=== PATIENT | female | born 1950 | race Caucasian/White ===

== ENCOUNTER 2016-09-10 04:08 | Day surgery (SDC) | payer MEDICARE, OTHER ==
[2016-09-09 11:37] LABS: HEMATOCRIT 39.9 % (36.0-48.0); HEMOGLOBIN 13.4 g/dL (12.0-16.0)
[2016-09-09 11:47] LABS: BUN (BLOOD UREA NITROGEN) 21 MG/DL (6-23); CALCIUM, SERUM 9.4 MG/DL (8.5-10.4); CHLORIDE, SERUM 104 MMOL/L (96-112); CO2 (CARBON DIOXIDE) 27 MMOL/L (24-34); CREATININE 0.93 MG/DL (0.55-1.02); GFR AFRICAN AMERICAN 73 ML/MIN (>=60); GFR NON AFRICAN AMERICAN 63 ML/MIN (>=60); GLUCOSE, SERUM 118 MG/DL (60-99); POTASSIUM, SERUM 4.2 MMOL/L (3.5-5.3); SODIUM, SERUM 141 MMOL/L (135-148)
--- NOTE | ~2016-09-10 | OP ---
Record Of Operation [facility] [address] [place]. [address] NAME: CLINT SANCHEZ : 46 STATUS : REG [facility] PAT#: [id number] AGE: 66 ADM/REG DATE : 09/10/16 MR#: [id number] REPORT SERV DATE: 09/10/16 DICTATED BY: AMILCAR VALLES DATE: 09/10/16 REPORT STATUS : Draft TRANSCRIBED BY: MODL DATE: 09/10/16 DATE OF PROCEDURE: 09/10/2016 PREOPERATIVE DIAGNOSIS: 1. Ventral hernia. 2. Sebaceous cyst left facial cheek. POSTOPERATIVE DIAGNOSIS: 1. Ventral hernia. 2. Sebaceous cyst left facial cheek. OPERATION PERFORMED: 1. Open ventral hernia repair with Bard Ventralight mesh. 2. Removal of sebaceous cyst, left facial cheek. SURGEON: Amilcar Valles M.D. ANESTHESIA: General. ESTIMATED BLOOD LOSS: Less than 20 mL. IV FLUIDS: Adequate. INDICATION FOR PROCEDURE: Ms. Sanchez is a 66-year-old white female, who has had multiple previous abdominal surgeries. She has developed a ventral hernia. She is here for repair today. In addition, she has a lesion over her left facial cheek that she would like to have excised. DESCRIPTION OF OPERATION: After appropriate sedation, the patient was prepped and draped in proper sterile fashion. Incision was made directly over the hernia. The hernia sac was entered. Attachments to the hernia sac were taken down. There was a moderate amount of transverse colon within the hernia sac. We dissected all the attachments to the transverse colon from the abdominal wall and we were finally able to reduce it. We had approximately 3 cm defect noted. We then cleared off the abdominal wall. We then sutured a piece of Bard Ventralight mesh circumferentially to the abdominal wall using #1 Nurolon suture. We then closed the fascial defect using #1 Nurolon suture. Marcaine was injected around the fascia. The back of the umbilical skin was tacked to the fascia. The skin was closed using interrupted 3-0 Vicryl suture. We then turned our attention toward the left cheek. A small incision was made directly over at the lesion. We then were able to enucleate an approximately 2 cm sebaceous cyst. The skin was closed using interrupted 3-0 Vicryl suture. Steri-Strips and dressings were then placed. The patient was taken to the recovery room in satisfactory condition. Record Of Operation [facility] [address] [place]. [address] NAME: CLINT SANCHEZ : 46 STATUS : REG [facility]#: [id number] AGE: 66 ADM/REG DATE : 09/10/16 MR#: [id number] REPORT SERV DATE: 09/10/16 DICTATED BY: AMILCAR VALLES DATE: 09/10/16 REPORT STATUS : Draft TRANSCRIBED BY: JAVON DATE: 09/10/16 ZOE/JAVON ilcar Valles M.D. / [id number] CC: Syl Rascon M.D.
[~2016-09-10 04:08] MED LIST: ACET500CAP PO; CITRUCEL500 MG PO; CLARIT10 PO; COZ50 PO; GLUCCHONDR PO; IBU800 PO; L40 PO; LUMIGAN2.5 ML OPH; MICRO-K10 MEQ PO; MULTIPLE VIT PO; NASACORTAQ NAS; OCUVITE PO; OMEGA; SPIRIVA INH; TEARS PURE OPH; VITAMIN D31000 UNIT PO; VITC500 PO
[2016-12-23] MEDS ORDERED: CENTRUM PO (09:01)
[2016-12-23] MEDS ORDERED: OCUVITE PO (09:01)
[2016-12-23] MEDS ORDERED: MICRO-K10 MEQ PO (09:02)
[2016-12-23] MEDS ORDERED: FLAXSEED OIL1000 MG PO (09:02)
[2016-12-23] MEDS ORDERED: SPIRIVA INH (09:03)
[2016-12-23] MEDS ORDERED: ACET500CAP PO (09:04)
== END 2016-09-10 16:29 | disposition home or self-care (01) ==
LOC: SDC 04:08
PROVIDERS: Specialist
PROC: 0WUF0JZ Supplement Abdominal Wall with Synthetic Substitute, Open Approach (ICD-10-PCS; principal; 2016-09-10 05:45)
PROC: 0HB1XZZ Excision of Face Skin, External Approach (ICD-10-PCS; 2016-09-10 05:45)
DX: K43.9 Ventral hernia without obstruction or gangrene (principal); L72.0 Epidermal cyst; I10 Essential (primary) hypertension; J44.9 Chronic obstructive pulmonary disease, unspecified; K21.9 Gastro-esophageal reflux disease without esophagitis; E66.01 Morbid (severe) obesity due to excess calories; M19.90 Unspecified osteoarthritis, unspecified site; Z88.5 Allergy status to narcotic agent; Z68.41 Body mass index [BMI] 40.0-44.9, adult; Z87.891 Personal history of nicotine dependence; Z88.8 Allergy status to other drugs, medicaments and biological substances; Z98.890 Other specified postprocedural states
CPT/HCPCS: 80048; 85014; 85018; 87641; 88304; 88305; 93005; A9270-GY; C1781; J0690; J1170; J2250; J2405; J2710; J3010

== ENCOUNTER 2016-10-28 16:20 | Inpatient (IN) | payer MEDICARE, OTHER ==
--- NOTE | ~2016-10-28 | CN ---
Consultation Report [facility] [address] [place]. [address] NAME: GREG SANCHEZ : 46 STATUS : ADM IN [facility]#: [id number] AGE: 66 ADM/REG DATE : 10/29/16 MR#: [id number] REPORT SERV DATE: 10/29/16 DICTATED BY: JAMES THOMPSON DATE: 10/29/16 REPORT STATUS : Draft TRANSCRIBED BY: MODL DATE: 10/29/16 DATE OF CONSULTATION: REASON FOR CONSULTATION: Mrs. Greg Sanchez is a 66-year-old female who is referred for evaluation of elevated troponins. CVD PHYSICIAN: Luis Garza MD HISTORY OF PRESENT ILLNESS: Mrs. Greg Sanchez was found to have lower extremity edema and was aggressively diuresed. She then entered with increasing fatigue and palpitations and found to be hypokalemic. REVIEW OF SYSTEMS: During this time, just before her admission, she noted her jaw was uncomfortable. She had jaw pain in the past but this was a different jaw pain. She does not remember any specific details. REVIEW OF SYSTEMS: Rest of the review of systems is negative. PAST MEDICAL HISTORY: 1. Followed by Dr. Garza for hypertension, longstanding. 2. COPD. SOCIAL HISTORY: She quit smoking 5 years ago. She does not drink. She lives alone. She is a retired nurse. FAMILY HISTORY: Negative for early heart disease. PHYSICAL EXAMINATION: VITAL SIGNS: Blood pressure is 139/55, pulse is 87. GENERAL: Resting comfortably, nutritional status appears adequate. EYES: PERRLA. LUNGS: No labored use of accessory muscles. Without rales or wheezes. COR: PMI is not displaced. No thrills or heaves. NL S1 and S2. No S3, murmur, click or rub. PULSES: Carotids without bruits. ABD: +BS, nontender. EXT: No cyanosis, clubbing or edema. SKIN: No petechiae. NEURO: Alert and oriented. Does not appear anxious or depressed. LABORATORY EVALUATION: EKG shows diffuse ST-segment depression. Troponin is mildly elevated at 0.09. Potassium has been replaced. Consultation Report [facility] [address] [place]. [address] NAME: GREG SANCHEZ : 46 STATUS : ADM IN PAT#: [id number] AGE: 66 ADM/REG DATE : 10/29/16 MR#: [id number] REPORT SERV DATE: 10/29/16 DICTATED BY: JAMES THOMPSON DATE: 10/29/16 REPORT STATUS : Draft TRANSCRIBED BY: JAVON DATE: 10/29/16 ASSESSMENT: At this time, we will consider cardiac catheterization for resolution of her possible coronary artery disease. The risk and benefits of this approach have been discussed with her and she agrees to proceed. SUN/JAVON James Thompson M.D. / [id number] CC: Syl Fernandes M.D.
--- NOTE | ~2016-10-28 | HP ---
History And Physical [place] [address] [facility] [place]. [address] NAME: CLINT VEGA : 46 STATUS : ADM [facility] PAT#: [id number] AGE: 66 ADM/REG DATE : 10/28/16 MR#: [id number] REPORT SERV DATE: 10/29/16 DICTATED BY: MADYSON ALCOCER DATE: 10/29/16 REPORT STATUS : Draft TRANSCRIBED BY: MODL DATE: 10/29/16 DATE OF ADMISSION: 10/28/2016 CHIEF COMPLAINT: A 66-year-old female presenting with recent increased use of diuretics, now hypokalemia and fatigue. HISTORY OF PRESENT ILLNESS: The patient's history was obtained through careful interview with the patient and brother coupled with review of [facility] and [facility] medical records. The patient on 09/10/2016 underwent a ventral hernia repair. While hospitalized, she received considerable amount of IV fluids but had a relatively good recovery from that. But ever since that surgery, she has had edema issues and she noticed since the middle of this month May that her edema has increased even more. She went to see her primary care physician on 10/23/2016 and because of significant lower extremity edema, had her chronic Lasix dose increased from 40 to 80 mg a day, had an increased dose of her potassium given, and also was started on Zaroxolyn 5 mg p.o. daily. In the last week, she has lost about 10 pounds. Her lower extremity edema is completely resolved now but unfortunately over the last few days in particular she has had increasing fatigue and palpitations. Today, she felt so ill that she decided to check her pulse and it was 147. She describes a mild headache. She has chronic back pain, no change from baseline. No chest pain. No abdominal pain. She has chronic orthopnea for which she sleeps in a recliner. She has had some recent worsening of shortness of breath characterized by dyspnea on exertion, and tonight she became lightheaded as if she might pass out as well. She has had nausea, but no vomiting. REVIEW OF SYSTEMS: Otherwise, a 14-point review of systems was obtained and was negative. PAST MEDICAL HISTORY: 1. Previous colon cancer ?.. 2. COPD. 3. Hypertension. 4. Glaucoma. 5. Bilateral adrenal adenomas. 6. Negative echocardiogram and negative cardiac stress test in February 2016. History And Physical [place] [address] [place]. [address] NAME: CLINT VEGA : 46 STATUS : ADM [facility] PAT#: [id number] AGE: 66 ADM/REG DATE : 10/28/16 MR#: [id number] REPORT SERV DATE: 10/29/16 DICTATED BY: MADYSON ALCOCER DATE: 10/29/16 REPORT STATUS : Draft TRANSCRIBED BY: JAVON DATE: 10/29/16 PAST SURGICAL HISTORY: 1. Cholecystectomy. 2. Hernia repair. 3. Back surgery. ALLERGIES: TO MORPHINE AND PERFUME. SOCIAL HISTORY: Quit smoking about five years ago. No alcohol use. She lives alone, is . She has a brother who lives next door. She has no children. She is retired ICU nurse. FAMILY HISTORY: Mother of end-stage renal disease and congestive heart failure. Father of alcoholic cirrhosis. A strong family history of hypertension. CURRENT MEDICATIONS: Include Vitamin C, eyedrops, vitamin D, Tylenol-PM, Colace 100 mg p.o. b.i.d., Lasix 80 mg p.o. b.i.d., Claritin 10 mg p.o. daily, Cozaar 50 mg p.o. b.i.d., methylcellulose tablets, Zaroxolyn 5 mg p.o. daily, Ocuvite, multivitamins, fish oil, potassium 40 mEq p.o. b.i.d., Spiriva inhaled daily, and glucosamine. PHYSICAL EXAMINATION: VITAL SIGNS: Temperature 98.7, pulse 133, blood pressure 80/46 but increased to 130/78, respiratory rate 19, O2 saturation 94% on room air. GENERAL: A pleasant, cooperative female, no evidence of acute distress. HEENT: Pupils are equal, round, and reactive to light. No conjunctival pallor. No scleral icterus. Nares are patent. Oropharynx is clear of obstruction. Dry mucous membranes. NECK: Trachea midline. No thyromegaly. LYMPH: No cervical lymphadenopathy. No supraclavicular lymphadenopathy. RESPIRATORY: Clear to auscultation at bases. No wheezes, rales, or rhonchi. Normal respiratory effort. CARDIOVASCULAR: Tachycardic, regular rhythm. No murmurs, rubs, or gallops. No current extremity edema is appreciated. ABDOMEN: Soft, nontender, nondistended. Normal bowel sounds auscultated throughout. No hepatosplenomegaly. DERMATOLOGICAL: Warm and dry extremities. No pallor, no cyanosis. PSYCHIATRIC: Normal affect. Good mood. Alert and oriented x3. LABORATORY DATA: White blood cell count 6.3, hemoglobin 16, hematocrit 46, platelets 152. Sodium 132, potassium 2.7, chloride 90, bicarb 33, BUN 27, creatinine 1.06, glucose 127, and troponin negative. STUDIES: 1. EKG by my own evaluation shows sinus tachycardia. 2. CT angiogram of the chest shows no acute intra-pulmonary cardiac process. ASSESSMENT AND PLAN: 1. Hypokalemia. We will continue patient's oral potassium and replace per protocol. Check magnesium but for now, we will be holding Zaroxolyn and Lasix but patient is History And Physical [address] [address] NAME: CLINT VEGA : 46 STATUS : ADM [facility] PAT#: [id number] AGE: 66 ADM/REG DATE : 10/28/16 MR#: [id number] REPORT SERV DATE: 10/29/16 DICTATED BY: MADYSON ALCOCER DATE: 10/29/16 REPORT STATUS : Draft TRANSCRIBED BY: JAVON DATE: 10/29/16 likely able to be discharged on her chronic home dose of Lasix (40 mg p.o. daily), and also restarted on more typical dose of potassium 40 mEq daily. 2. Tachycardia, hold diuretics, mild IV fluids. Check telemetry. 3. Chronic obstructive pulmonary disease. KPL/MODL Madyson Alcocer M.D. / [id number] CC: Syl Fernandes M.D.
--- NOTE | ~2016-10-28 | DS ---
Discharge Summary [facility] [address] [place]. [address] NAME: CLINT VEGA : 46 STATUS : ADM IN [facility]#: [id number] AGE: 66 ADM/REG DATE : 10/29/16 MR#: [id number] REPORT SERV DATE: 10/31/16 DICTATED BY: DOMINGA FU DATE: 10/31/16 REPORT STATUS : Draft TRANSCRIBED BY: MODL DATE: 10/31/16 ADMISSION DATE: 10/29/2016 DISCHARGE DATE: 10/31/2016 DIAGNOSES ON ADMISSION: 1. Hypokalemia. 2. Tachycardia. 3. Chronic obstructive pulmonary disease. DIAGNOSES ON DISCHARGE: 1. Hypokalemia secondary to over diuresis, resolved. 2. Minimally elevated troponin on admission status post coronary arteriography with normal open coronary arteries, asymptomatic. 3. Tachycardia, resolved with fluid hydration and potassium replacement. 4. No evidence of congestive heart failure on coronary arteriogram. Normal ejection fraction. 5. History of chronic obstructive pulmonary disease, no evidence of exacerbation. 6. Hypertension, controlled. 7. Bilateral adrenal adenomas on the CT scan of the abdomen and pelvis, unchanged since previous study in December 2015. Needs to be followed periodically by primary care physician, Dr. Castanon. 8. History of recent abdominal hernia repair, stable. IMAGING STUDIES DONE DURING THIS HOSPITALIZATION: CTA of the chest done on 10/28/2016 showed asymmetric probable thyroid goiter, right lobe larger than left. Also, showed no evidence of pulmonary embolism. Minor subsegmental atelectasis. Stable bilateral adrenal adenomas, 1.8 cm on the right, and 1.6 cm on the left, unchanged since previous studies in 12/26/2015. PROCEDURES: Coronary arteriogram was done yesterday on 10/30/2016 which showed systolic function with normal ejection fraction of 68%. No valvular regurgitation. Clear coronary arteries. HISTORY OF PRESENT ILLNESS: Briefly, this is a very pleasant 66-year-old female, who was admitted by my colleague Dr. Rushing for hypokalemia, fatigue, and dehydration because she was told by her primary care physician to increase her Lasix from 40 mg to 80 mg as well as Zaroxolyn was added to her diuretic regimen for the lower extremity edema. The patient does not have any history of congestive heart failure, so with that over-diuresis, she developed fatigue and hypokalemia for which reason she was admitted to the hospital. The patient was given potassium replacement and her tachycardia resolved. Her diuretics were on hold. She developed mildly elevated troponin on admission, which subsequently came down. Gem Expert Dr. Thompson saw the patient in consultation. After reviewing her EKG and past medical history, he recommended coronary arteriogram, which was performed yesterday, and the patient had clear coronary arteries and normal ejection fraction. The patient was very weak and lethargic to be discharged yesterday, but today she is awake, alert, and oriented, and she is ready to be discharged. Her potassium is in the normal range at 4.5, and we will recommend to restart her diuretic at the lower dose as she was taking previously Lasix 40 mg Discharge Summary [address] [address] NAME: CLINT VEGA : 46 STATUS : ADM IN [facility]#: [id number] AGE: 66 ADM/REG DATE : 10/29/16 MR#: [id number] REPORT SERV DATE: 10/31/16 DICTATED BY: DOMINGA FU DATE: 10/31/16 REPORT STATUS : Draft TRANSCRIBED BY: JAVON DATE: 10/31/16 a day, and potassium chloride 20 mEq daily, with Lasix. The patient said that previously she was on that regimen as well as she was on oral losartan 50 twice a day, and her potassium was in the normal range. We recommend the patient to check her potassium on 11/04/[address] Kristal Castanon. She needs to follow up with her. She needs to be on a low-cholesterol diet. She needs to continue baby aspirin, vitamin D3 1000 units daily, Colace 100 mg b.i.d., methylcellulose 2 tablets daily, Lumigan eye drops daily, Claritin 10 mg daily, losartan 50 mg twice, multivitamins daily, [place]-3 fatty acids daily, Spiriva 1 capsule by inhalation q.24 hours, and Lasix decreased to 40 mg a day. The patient to stop metolazone. Vitamin C 1000 mg daily, Benadryl 1 tablet p.o. at bedtime, glucosamine chondroitin 2 tablets daily, potassium chloride 20 mEq p.o. daily. The patient was discharged in stable condition for her adrenal adenomas, Dr. Castanon needs to do periodic followups on the imaging studies as well as the patient to follow up with Dr. Castanon on Friday to check her BMP. Spent 45 minutes on discharge. The patient was discharged in stable condition. DICTATED BY: Syl Fernandes/JAVON Dominga Fu M.D. / [id number] CC: Syl Fernandes M.D. Gordon Graham, M.D. Vinay Deep Madan, MD
[2016-10-28 17:31] LABS: BASOPHILS 0.3 %; BASOPHILS ABSOLUTE 0.02 10/3/uL (0.0-0.16); EOSINOPHILS 1.1 %; EOSINOPHILS ABSOLUTE 0.07 10/3/uL (0.0-0.53); ER CBC TAT 0 Hrs 05 Mins; HEMOGLOBIN 15.9 g/dL (12.0-16.0); IMMATURE GRANULOCYTES 0.3 %; IMMATURE GRANULOCYTES ABSOLUTE 0.02 10/3/uL (0.0-0.11); LYMPHOCYTES 27.5 %; LYMPHOCYTES ABSOLUTE 1.74 10/3/uL (0.67-4.30); MEAN CORPUS HGB CONC 34.4 g/dL (32.0-36.0); MEAN CORPUSCULAR HEMOGLOB 30.8 pg (26.0-34.0); MEAN PLATELET VOLUME 9.3 fL (9.2-13.0); MONOCYTES 8.4 %; MONOCYTES ABSOLUTE 0.53 10/3/uL (0.21-1.20); NEUTROPHILS 62.4 %; NEUTROPHILS ABSOLUTE 3.94 10/3/uL (2.02-8.40); RBC DISTRIBUTION WIDTH 13.4 % (12.0-16.0); WHITE BLOOD CELLS 6.3 10/3/uL (4.5-10.5)
[2016-10-28 17:34] LABS: HEMATOCRIT 46.2 % (36.0-48.0); MANUAL DIFF NO %; MEAN CORPUSCULAR VOLUME 89.4 fL (80-100); PLATELET COUNT 152 10/3/uL (150-400); RED CELL COUNT 5.17 10/6/uL (4.0-5.6)
[2016-10-28 18:06] LABS: CREATININE 1.06 MG/DL (0.55-1.02); GFR AFRICAN AMERICAN 62 ML/MIN (>=60); GFR NON AFRICAN AMERICAN 54 ML/MIN (>=60); GLUCOSE, SERUM 127 MG/DL (60-99); SODIUM, SERUM 132 MMOL/L (135-148); TROPONIN I <0.02 NG/ML (<0.05)
[2016-10-28 18:07] LABS: BUN (BLOOD UREA NITROGEN) 27 MG/DL (6-23); CALCIUM, SERUM 12.2 MG/DL (8.5-10.4); CHEST PAIN PROFILE TAT 0 Hrs 40 Mins; CHLORIDE, SERUM 90 MMOL/L (96-112); CO2 (CARBON DIOXIDE) 33 MMOL/L (24-34); POTASSIUM, SERUM 2.7 MMOL/L (3.5-5.3)
[2016-10-28 18:48] LABS: PROTIME (NOT ORD) 12.9 SEC (12.0-14.5)
[2016-10-28 18:49] LABS: PARTIAL THROMBO TIME 29.8 SEC (22.5-37.2)
[2016-10-28 18:51] LABS: D-DIMER QUANTITATIVE 0.97 ug/mLFEU (< 0.50)
[2016-10-28] MEDS ORDERED: KLOR-CON M2020 MEQ PO (20:03)
[2016-10-28] MEDS ORDERED: LUMIGAN2.5 ML OPH (20:04)
[2016-10-28] MEDS ORDERED: Z5 PO (20:04)
[2016-10-28] MEDS ORDERED: L40 PO (20:04)
[2016-10-28] MEDS ORDERED: COZ50 PO (20:04)
[2016-10-28] MEDS ORDERED: CLARIT10 PO (20:04)
[2016-10-28] MEDS ORDERED: MULTIVITAMI1 PO (20:05)
[2016-10-28] MEDS ORDERED: CITRUCEL500 MG PO (20:05)
[2016-10-28] MEDS ORDERED: SPIRIVA INH (20:05)
[2016-10-28] MEDS ORDERED: VITC500 PO (20:05)
[2016-10-28] MEDS ORDERED: FISH-EPA1000 MG PO (20:06)
[2016-10-28] MEDS ORDERED: TYLENOL PM PO (20:06)
[2016-10-28] MEDS ORDERED: VITAMIN D31000 UNIT PO (20:06)
[2016-10-28] MEDS ORDERED: MSM PO (20:06)
[2016-10-28] MEDS ORDERED: GLUCOSAMINE PO (20:06)
[2016-10-28] MEDS ORDERED: OCUVITE PO (20:07)
[2016-10-28] MEDS ORDERED: DSS PO (20:07)
[2016-10-29 02:46] LABS: BASOPHILS 0.2 %; BASOPHILS ABSOLUTE 0.02 10/3/uL (0.0-0.16); EOSINOPHILS 0.6 %; EOSINOPHILS ABSOLUTE 0.05 10/3/uL (0.0-0.53); HEMATOCRIT 44.5 % (36.0-48.0); HEMOGLOBIN 15.4 g/dL (12.0-16.0); IMMATURE GRANULOCYTES 0.2 %; IMMATURE GRANULOCYTES ABSOLUTE 0.02 10/3/uL (0.0-0.11); LYMPHOCYTES 32.9 %; LYMPHOCYTES ABSOLUTE 2.77 10/3/uL (0.67-4.30); MEAN CORPUS HGB CONC 34.6 g/dL (32.0-36.0); MEAN CORPUSCULAR VOLUME 89.5 fL (80-100); MEAN PLATELET VOLUME 9.2 fL (9.2-13.0); MONOCYTES 10.3 %; MONOCYTES ABSOLUTE 0.87 10/3/uL (0.21-1.20); NEUTROPHILS 55.8 %; NEUTROPHILS ABSOLUTE 4.68 10/3/uL (2.02-8.40); RBC DISTRIBUTION WIDTH 13.6 % (12.0-16.0); RED CELL COUNT 4.97 10/6/uL (4.0-5.6); WHITE BLOOD CELLS 8.4 10/3/uL (4.5-10.5)
[2016-10-29 02:47] LABS: MANUAL DIFF NO %; PLATELET COUNT 279 10/3/uL (150-400)
[2016-10-29 02:53] LABS: INTERNATIONAL NORMAL RATI 1.1 UNITS (-); PARTIAL THROMBO TIME 29.8 SEC (22.5-37.2); PROTIME (NOT ORD) 13.6 SEC (12.0-14.5)
[2016-10-29 03:10] LABS: ALBUMIN 4.1 G/DL (3.5-5.0); BUN (BLOOD UREA NITROGEN) 26 MG/DL (6-23); CALCIUM, SERUM 11.4 MG/DL (8.5-10.4); CHLORIDE, SERUM 92 MMOL/L (96-112); CO2 (CARBON DIOXIDE) 31 MMOL/L (24-34); CREATININE 1.08 MG/DL (0.55-1.02); GFR AFRICAN AMERICAN 61 ML/MIN (>=60); GFR NON AFRICAN AMERICAN 53 ML/MIN (>=60); GLUCOSE, SERUM 141 MG/DL (60-99); SGOT(AST) 23 U/L (5-40); SGPT(ALT) 29 U/L (5-65); SODIUM, SERUM 136 MMOL/L (135-148); TOTAL BILIRUBIN 0.5 MG/DL (0-1.2); TOTAL PROTEIN 8.2 G/DL (6.0-8.5)
[2016-10-29 03:11] LABS: ALKALINE PHOSPHATASE 79 U/L (45-117); GLOBULIN 4.1 G/DL (2.5-4.1); POTASSIUM, SERUM 3.3 MMOL/L (3.5-5.3)
[2016-10-29 03:12] LABS: TROPONIN I 0.09 NG/ML (<0.05)
[2016-10-29 12:52] LABS: POTASSIUM, SERUM 3.8 MMOL/L (3.5-5.3)
[2016-10-29 12:53] LABS: TROPONIN I 0.05 NG/ML (<0.05)
[2016-10-30 04:34] LABS: BASOPHILS 0.3 %; BASOPHILS ABSOLUTE 0.02 10/3/uL (0.0-0.16); EOSINOPHILS 3.2 %; HEMATOCRIT 40.6 % (36.0-48.0); HEMOGLOBIN 13.8 g/dL (12.0-16.0); IMMATURE GRANULOCYTES 0.2 %; IMMATURE GRANULOCYTES ABSOLUTE 0.01 10/3/uL (0.0-0.11); LYMPHOCYTES 41.3 %; LYMPHOCYTES ABSOLUTE 2.57 10/3/uL (0.67-4.30); MEAN CORPUSCULAR HEMOGLOB 30.9 pg (26.0-34.0); MEAN PLATELET VOLUME 8.8 fL (9.2-13.0); MONOCYTES 9.6 %; NEUTROPHILS 45.4 %; NEUTROPHILS ABSOLUTE 2.82 10/3/uL (2.02-8.40); PLATELET COUNT 232 10/3/uL (150-400); RBC DISTRIBUTION WIDTH 13.6 % (12.0-16.0); RED CELL COUNT 4.46 10/6/uL (4.0-5.6); WHITE BLOOD CELLS 6.2 10/3/uL (4.5-10.5)
[2016-10-30 04:35] LABS: MANUAL DIFF NO %
[2016-10-30 04:52] LABS: CHLORIDE, SERUM 98 MMOL/L (96-112); CHOL/HDL RATIO(NOT ORDER) 3.5 (0-5); CHOLESTEROL 178 MG/DL (< 200); CO2 (CARBON DIOXIDE) 31 MMOL/L (24-34); CREATININE 0.83 MG/DL (0.55-1.02); GFR AFRICAN AMERICAN 84 ML/MIN (>=60); GFR NON AFRICAN AMERICAN 72 ML/MIN (>=60); HDL CHOLESTEROL 51 MG/DL (> 49); LDL CHOLESTEROL 95 MG/DL (< 130); NON-HDL CHOLESTEROL 127 MG/DL (< 160); POTASSIUM, SERUM 3.7 MMOL/L (3.5-5.3); SODIUM, SERUM 136 MMOL/L (135-148); TRIGLYCERIDE 160 MG/DL (< 150)
[2016-10-30 04:56] LABS: BUN (BLOOD UREA NITROGEN) 22 MG/DL (6-23); CALCIUM, SERUM 9.5 MG/DL (8.5-10.4); GLUCOSE, SERUM 101 MG/DL (60-99)
[2016-10-31 10:01] LABS: HEMATOCRIT 44.1 % (36.0-48.0); HEMOGLOBIN 14.6 g/dL (12.0-16.0); MANUAL DIFF YES %; MEAN CORPUS HGB CONC 33.1 g/dL (32.0-36.0); MEAN CORPUSCULAR HEMOGLOB 30.4 pg (26.0-34.0); MEAN CORPUSCULAR VOLUME 91.9 fL (80-100); MEAN PLATELET VOLUME 9.2 fL (9.2-13.0); PLATELET COUNT 216 10/3/uL (150-400); RBC DISTRIBUTION WIDTH 13.6 % (12.0-16.0); WHITE BLOOD CELLS 6.7 10/3/uL (4.5-10.5)
[2016-10-31 10:09] LABS: CALCIUM, SERUM 9.6 MG/DL (8.5-10.4); CHLORIDE, SERUM 100 MMOL/L (96-112); CO2 (CARBON DIOXIDE) 29 MMOL/L (24-34); CREATININE 0.86 MG/DL (0.55-1.02); GFR AFRICAN AMERICAN 80 ML/MIN (>=60); GFR NON AFRICAN AMERICAN 69 ML/MIN (>=60); SODIUM, SERUM 136 MMOL/L (135-148)
[2016-10-31 10:11] LABS: BUN (BLOOD UREA NITROGEN) 14 MG/DL (6-23); GLUCOSE, SERUM 141 MG/DL (60-99); POTASSIUM, SERUM 4.5 MMOL/L (3.5-5.3)
[2016-10-31 10:31] LABS: EOSINOPHILS 3 %; LYMPHOCYTES 31 %; LYMPHOCYTES ABSOLUTE (CALC) 2.08 10/3/uL (0.67-4.30); MONOCYTES 8 %; MONOCYTES ABSOLUTE (CALC) 0.54 10/3/uL (0.21-1.20); NEUTROPHILS ABSOLUTE (CALC) 3.89 10/3/uL (2.02-8.40); PLATELET ESTIMATE ADQ (ADEQUATE); RBC MORPHOLOGY NORM (NORMAL); SEGMENTED NEUTROPHIL (0) 58 %; TOTAL NUCLEATED CELLS 100
[2016-10-31] MEDS ORDERED: ASAB PO (11:46)
[2016-12-23] MEDS ORDERED: OCUVITE PO (09:01)
[2016-12-23] MEDS ORDERED: CENTRUM PO (09:01)
[2016-12-23] MEDS ORDERED: MICRO-K10 MEQ PO (09:02)
[2016-12-23] MEDS ORDERED: FLAXSEED OIL1000 MG PO (09:02)
[2016-12-23] MEDS ORDERED: SPIRIVA INH (09:03)
[2016-12-23] MEDS ORDERED: ACET500CAP PO (09:04)
== END 2016-10-31 12:21 | disposition home or self-care (01) | DRG 641 ==
LOC: ER 16:20 → CDU1 23:18 → CDU2 23:54
PROVIDERS: Hospitalist; Internal Medicine Cardiovascular Disease; Physician Assistant
PROC: 4A023N7 Measurement of Cardiac Sampling and Pressure, Left Heart, Percutaneous Approach (ICD-10-PCS; principal; 2016-10-30)
PROC: B2111ZZ Fluoroscopy of Multiple Coronary Arteries using Low Osmolar Contrast (ICD-10-PCS; 2016-10-30)
PROC: B2151ZZ Fluoroscopy of Left Heart using Low Osmolar Contrast (ICD-10-PCS; 2016-10-30)
DX: E87.6 Hypokalemia (principal); J44.9 Chronic obstructive pulmonary disease, unspecified; I10 Essential (primary) hypertension; R00.0 Tachycardia, unspecified; D35.02 Benign neoplasm of left adrenal gland; D35.01 Benign neoplasm of right adrenal gland; T50.2X5A Adverse effect of carbonic-anhydrase inhibitors, benzothiadiazides and other diuretics, initial encounter
CPT/HCPCS: 71010; 71275; 80048; 80053; 80061; 83690; 83735; 83880; 84132; 84443; 84484; 85025; 85379; 85610; 85730; 93005; 93458; 96365; 99152; 99285; A9270-GY; C1769; C1887; C1894; J2250; J2405; J3010; Q9967